=== PATIENT | male | born 1960 | race African-American/Black ===

== ENCOUNTER 2020-09-01 11:40 | Emergency (ER) | payer SELFPAY ==
[~2020-09-01 11:40] MED LIST: Iopamidol 370 76% 100 ML VIAL ONE
[2020-09-01] MEDS ORDERED: Acetaminophen 500 MG TAB ONE (12:05)
--- NOTE | 2020-09-01 12:23 | RAD ---
Chest AP view INDICATION: History of Covid exposure with chest pain and dyspnea COMPARISON: None FINDINGS: Lungs: There are interstitial and airspace opacities within the left lower lobe with obscuration of the left hemidiaphragm. Cardiac silhouette: The cardiomediastinal silhouette appears within normal limits. Pulmonary vasculature: Normal Pleural spaces: No pleural effusion or pneumothorax is demonstrated. Upper abdomen: No abnormality seen. Osseous structures: No acute osseous abnormality. Additional findings: None. IMPRESSION: Interstitial and airspace opacity of the left lower lobe with obscuration left hemidiaphragm suspicio us for consolidation of the left lower lobe possibly related pneumonia. Two-view chest radiograph may be helpful for further characterization.
[2020-09-01 12:29] LABS: ALT (SGPT) 14 U/L (8-55); AST (SGOT) 18 U/L (5-34); Albumin 4.1 g/dL (3.5-5.0); Alkaline Phosphatase 84 U/L (40-110); Anion Gap 16 mmol/L (10-20); BUN (Urea Nitrogen) 14 mg/dL (8.4-25.7); Bilirubin, Total 1.7 mg/dL (0.2-1.2); Calc. Creatinine Clearance 0 mL/min (70-130); Calcium 8.8 mg/dL (7.8-10.44); Carbon Dioxide 21 mmol/L (22-29); Chloride 101 mmol/L (98-107); Globulin 3.2 g/dL (2.4-3.5); Glucose 99 mg/dL (70-105); Potassium 3.9 mmol/L (3.5-5.1); Protein, Total 7.3 g/dL (6.0-8.3); Sodium 134 mmol/L (136-145)
[2020-09-01 12:39] LABS: #Basophils 0.1 thou/uL (0.0-0.2); #Lymphocytes 0.7 thou/uL (1.20-3.40); #Monocytes 0.6 thou/uL (0.11-0.59); %Basophils 0.5 % (0.0-1.0); %Lymphocytes 4.3 % (21.0-51.0); %Monocytes 3.7 % (0.0-10.0); %Neutrophils 91.6 % (42.0-75.0); Hemoglobin 15.4 g/dL (14.0-18.0); Mean Corpuscular Volume 93.8 fL (78.0-98.0); Mean Platelet Volume 6.4 fL (7.4-10.4); Platelet Count 221 thou/uL (130-400); RBC Distribution Width 12.8 % (11.5-14.5); Red Blood Cell (RBC) Count 5.13 mill/uL (4.70-6.10); White Blood Cell (WBC) Count 16.3 thou/uL (4.8-10.8)
[2020-09-01] MEDS ORDERED: Sodium Chloride 0.9% 100 ML ONE (12:59)
[2020-09-01] MEDS ORDERED: cefTRIAXone\\ROCEPHIN 2 GM VIAL ONE (12:59)
--- NOTE | 2020-09-01 14:04 | CT ---
CTA Angio Chest W WO Con 09/01/2020 1:20 PM Indication: Chest pain and difficulty breathing with positive Covid exposure Technique: Multiple CTA images were obtained of the thorax with IV contrast. 3-D rendering: MIP rachelle nstructed images were created and reviewed. Comparison: No relevant prior studies available. Findings: Pulmonary arteries: No central or segmental pulmonary embolus is evident. Heart and Aorta: There are mild vascular calcifications involving the thoracic aorta. Heart size is within normal limits. Mediastinum:The mildly prominent subcarinal lymph and measuring 1.3 cm. Lungs:There is dense airspace consolidation of the left lower lobe. There is fluid and debris within the left lower lobar bronchus. There is scattered emphysema. There is a 5 mm and 1.4 cm pulmonary nodule within the right upper lobe. Pleural space: Clear. Upper Abdomen: Visualized adrenal glands appear within normal limits. Osseous Structures: There are acute mildly displaced lateral right fourth and fifth rib fractures. N o suspicious osteolytic or osteoblastic lesion is identified. Soft tissues:No abnormality. Other findings:None. Impression: 1. No central or segmental pulmonary embolus. 2. There is soft tissue and fluid like debris within the left lower lobar bronchus with airspace cons olidation of the left lower lobe suspicious for an aspiration pneumonia. Recommend appropriate therapy and follow-up CT imaging with IV contrast to document resolution. An intraluminal bronchial l esion could be obscured by the current findings. 3. Mildly prominent subcarinal lymph node measuring 1.2 cm. 4. Scattered emphysema and right upper lobe pulmonary nodules. These nodules can be followed up on e above recommended evaluation. 5. Acute mildly displaced lateral right fourth and fifth rib fractures.
[2020-09-01 14:14] LABS: SARS-CoV-2 NAA Rapid Test Not Detected (NotDetected)
[2020-09-01] MEDS ORDERED: Azithromycin 500 MG VIAL ONE (14:14)
[2020-09-01] MEDS ORDERED: Ondansetron PF 4 MG/2 ML Vial ONE (14:14)
[2020-09-01] MEDS ORDERED: Morphine 2 MG/ML SYRINGE ONE (14:14)
[2020-09-01] MEDS ORDERED: Sodium Chloride 0.9% 250 ML 250 ML ONE (14:14)
== END 2020-09-01 16:15 | disposition short-term general hospital (02) ==
LOC: NAV ERS 11:40
DX: A41.9 Sepsis, unspecified organism (principal); S22.41XA Multiple fractures of ribs, right side, initial encounter for closed fracture; J18.9 Pneumonia, unspecified organism; Z20.828 Contact with and (suspected) exposure to other viral communicable diseases; F17.210 Nicotine dependence, cigarettes, uncomplicated; X58.XXXA Exposure to other specified factors, initial encounter
CPT/HCPCS: 0240U; 71045; 71275; 80053; 83605; 84484; 85025; 85379; 87040; 93005; 94760; 96365; 96367; 96375; J0456; J0696; J2270; J2405; J3490; J7050; Q9967

== ENCOUNTER 2023-04-26 20:13 | Emergency (ER) | payer SELFPAY ==
[2023-04-26 20:34] LABS: Hematocrit 42.8 % (42.0-52.0); Hemoglobin 13.3 g/dL (14.0-18.0); Mean Corpuscular HGB CONC 31.1 g/dL (32.0-36.0); Mean Corpuscular Hemoglobin 29.7 pg (27.0-31.0); Mean Corpuscular Volume 95.3 fl (78.0-98.0); Mean Platelet Volume 5.9 fL (7.4-10.4); Platelet Count 204 10x3/uL (130-400); RBC Distribution Width 13.4 % (11.5-14.5); Red Blood Cell (RBC) Count 4.49 mill/uL (4.70-6.10); White Blood Cell (WBC) Count 4.7 10x3/uL (4.8-10.8)
[2023-04-26 20:35] LABS: MDiff Complete? YES; Manual Diff?? YES
[2023-04-26 20:39] LABS: PTT 28.4 sec (22.9-36.1); Prothrombin Time 13.7 sec (12.0-14.7)
[2023-04-26 20:43] LABS: Acetaminophen Less than 10 mcg/mL (10.0-30.0); Alcohol 172.8 mg/dL (Less than 10); Salicylate Less than 8.0 mg/dL (15.0-30.0)
[2023-04-26 20:45] LABS: ALT (SGPT) 9 U/L (8-55); AST (SGOT) 13 U/L (5-34); Albumin 3.7 g/dL (3.4-4.8); Alkaline Phosphatase 68 U/L (40-110); Anion Gap 14 mmol/L (10-20); BUN (Urea Nitrogen) 11 mg/dL (8.4-25.7); Bilirubin, Total 0.5 mg/dL (0.2-1.2); Calc. Creatinine Clearance 0 mL/min (70-130); Calcium 8.5 mg/dL (7.8-10.44); Carbon Dioxide 18 mmol/L (23-31); Chloride 107 mmol/L (98-107); Eosinophils 4 % (0-10); Estimated GFR 103; Globulin 3.1 g/dL (2.4-3.5); Glucose 82 mg/dL (80-115); Lymphocytes 34 % (21-51); Monocytes 2 % (0-10); Neutrophil 57 % (42-75); Potassium 3.8 mmol/L (3.5-5.1); Protein, Total 6.8 g/dL (5.8-8.1); Reactive Lymphocytes 3 % (0-10); Sodium 135 mmol/L (136-145)
[2023-04-26 20:46] LABS: Macrocytosis SLIGHT = 6-15 cells (100X) (0-5/hpf); Troponin I Less than 0.010 ng/mL (< 0.028)
[2023-04-26 20:47] LABS: Large Platelets SLIGHT (None Seen); Platelet Adequacy Comment Appears Adequate
[2023-04-26] MEDS ORDERED: Aspirin Chewable 81 MG TAB ONE (20:59)
[2023-04-26 21:34] LABS: Amphetamine Not Detected (NotDetected); Barbiturates Screen Not Detected (NotDetected); Benzodiazepine Screen Not Detected (NotDetected); Cocaine Metabolite Screen Detected (NotDetected); Methadone Not Detected (NotDetected); Methamphetamine Not Detected (NotDetected); Opiate Screen Detected (NotDetected); Oxycodone Screen Not Detected (NotDetected); Phencyclidine (PCP) Not Detected (NotDetected); THC/Cannabinoid Screen Not Detected (NotDetected); Tricyclic Screen Not Detected (NotDetected)
[2023-04-26] MEDS ORDERED: Thiamine HCl 200 MG/2 ML VIAL ONE (22:15)
[2023-04-26] MEDS ORDERED: Dextrose 5 %-0.45 % NaCl 1,000 ML ONE (22:15)
[2023-04-26] MEDS ORDERED: Sodium Chloride 0.9% 100 ML ONE (22:15)
== END 2023-04-27 05:24 | disposition short-term general hospital (02) ==
LOC: NAV ERS 20:13
DX: I63.9 Cerebral infarction, unspecified (principal); R29.707 NIHSS score 7; F10.129 Alcohol abuse with intoxication, unspecified; I48.91 Unspecified atrial fibrillation; F17.210 Nicotine dependence, cigarettes, uncomplicated
CPT/HCPCS: 36415; 36416; 70450; 71045; 80306; 80307; 84484; 85025; 85610; 85730; 93005; 94760; 96365; J3411; J7042